=== PATIENT | male | born 1965 | race African-American/Black ===

== ENCOUNTER 2024-01-22 13:10 | Inpatient (IN) | payer OTHER, MEDICAID ==
[~2024-01-22] VITALS: Ht 170.2 cm; Wt 60.1 kg
--- NOTE | 2024-01-22 14:09 | ED.PDOC ---
HPI Comments 58 y.o male with PMH of ESRD, on dialysis Monday, Monday, Monday, CVA x2, and HTN, presents to the ED via EMS for an evaluation of high blood pressure associated with SOB, dizziness and a cough that started 1-2 days ago. Patient reports he had dialysis done today at 1130, completed the full session but symptoms did not relief. Patient denies any chest pain, nausea, vomiting, fever or chills. Upon ED arrival, patient's pressure read 240/120. Chief Complaint: High Blood Pressure Time Seen by MD: 13:58 Reviewed Notes: Nurses Notes, Sanding Machine Tender Automatic Notes, Medications, Allergies Allergies: Coded Allergies: Diphenhydramine (Verified Allergy, Unknown, 01/22/24) Information Source: Patient Mode of Arrival: EMS Severity: Moderate Timing: Days Duration: Since onset Onset: At Rest Cardiac Risk Factors: HTN History of: None Modifying Factors: Nothing Associated Signs and Symptoms: SOB Past Medical History PAST MEDICAL HISTORY: CVA (2), ESRD, HTN Surgical History (Other): left arm shunt Family History Family History: Reviewed,noncontributory to illness Social History Smoker: Non-Smoker Alcohol: Denies ETOH Use Drugs: Denies Drug Use Lives In: Home Constitutional: denies: chills, diaphoresis, fatigue, fever, malaise, sweats, weakness, others EENTM: denies: blurred vision, double vision, ear bleeding, ear discharge, ear drainage, ear pain, ear ringing, eye pain, eye redness, hearing loss, mouth pain, mouth swelling, nasal discharge, nose bleeding, nose congestion, nose pain, photophobia, tearing, throat pain, throat swelling, voice changes, others Respiratory: reports: cough, SOB at rest, shortness of breath; denies: hemoptysis, orthopnea, SOB with excertion, stridor, wheezing, others Cardiovascular: denies: chest pain, dizzy spells, diaphoresis, Dyspnea on exertion, edema, irregular heart beat, left arm pain, lightheadedness, palpitations, PND, syncope, others Gastrointestinal: denies: abdomen distended, abdominal pain, blood streaked bowels, constipated, diarrhea, dysphagia, difficulty swallowing, hematemesis, melena, nausea, poor appetite, poor fluid intake, rectal bleeding, rectal pain, vomiting, others Genitourinary: denies: burning, dysuria, flank pain, frequency, hematuria, incontinence, penile discharge, penile sore, pain, testicle pain, testicle swelling, urgency, others Neurological: reports: dizziness; denies: fainting, headache, left sided numbness, left sided weakness, numbness, paresthesia, pre-existing deficit, right sided numbness, right sided weakness, seizure, speech problems, tingling, tremors, weakness, others Musculoskeletal: denies: back pain, gout, joint pain, joint swelling, muscle pain, muscle stiffness, neck pain, others Integumetry: denies: bruises, change in color, change in hair/nails, dryness, laceration, lesions, lumps, rash, wounds, others Allergic/Immunocompromised: denies: Difficulty Healing, Frequent Infections, Hives, Itching, others Hematologic/Lymphatic: denies: anemia, blood clots, easy bleeding, easy bruising, swollen glands, others Endocrine: denies: excessive hunger, excessive sweating, excessive thirst, excessive urination, flushing, intolerance to cold, intolerance to heat, unexplained weight gain, unexplained weight loss, others Psychiatric: denies: anxiety, bipolar disorder, depression, hopeless, panic disorder, schizophrenia, sleepless, suicidal, others All Other Systems: Reviewed and Negative Physical Exam General Appearance: Moderate Distress HEENT: Normal ENT Inspection, Pharynx Normal, TMs Normal Neck: Full Range of Motion, Non-Tender, Normal, Normal Inspection Respiratory: Chest Non-Tender, No Accessory Muscle Use, Rales, Respiratory Distress Cardiovascular: No Edema, No JVD, No Murmur, No Gallop, Normal Peripheral Pulses, Regular Rate/Rhythm Breast Exam: Deferred Gastrointestinal: No Organomegaly, Non Tender, No Pulsatile Mass, Normal Bowel Sounds, Soft Genitalia: Deferred Pelvic: Deferred Rectal: Deferred Extremities: No calf tenderness, Normal capillary refill, No pedal edema, Other (Left arm fistula for dialysis) Musculoskeletal : Apperance: Normal Neurologic: Alert, mining speculator II-XII nml as Tested, Motor Weakness, Normal Affect, Normal Mood, No Sensory Deficits Cerebellar Function: Normal Reflexes: Normal Skin: Dry, Normal Color, Warm Lymphatic: No Adenopathy EKG EKG : Pulse Rate (adult): 62 [place]: Normal Cardiac Rhythm: NSR Block: None Hypertrophy: LVH Was a procedure done? Was a procedure done?: No CP Differential Dx Differential Diagnosis: N/A Differential Diagnosis: CHF, HTN Essential, HTN Accelerated, HTN Encephalopathy ( ) X-Ray, Labs, Meds, VS Vital Signs Date Time Temp Pulse Resp B/P (MAP) Pulse Ox O2 Delivery O2 Flow Rate FiO2 01/22/24 16:50 98.4 72 24 231/87 (135) 95 98.4 01/22/24 15:03 62 01/22/24 14:59 62 01/22/24 14:44 65 16 93 Room Air* 0 21 01/22/24 14:41 225/106 01/22/24 14:36 97.7 63 18 225/106 (145) 91 97.7 01/22/24 13:10 97.9 90 20 240/120 (160) 96 Lab Test 01/22/24 16:28 Range/Units White Blood Count 4.7 4.4-10.8 10^3/uL Red Blood Count 4.05 L 4.5-5.90 10^6/uL Hemoglobin 10.9 L 13.5-17.5 g/dL Hematocrit 33.3 L 41.0-53.0 % Mean Corpuscular Volume 82.3 80.0-100.0 fL Mean Corpuscular Hemoglobin 26.9 L 28.0-32.0 pg Mean Corpuscular Hemoglobin Concent 32.7 32.0-36.0 g/dL Red Cell Distribution Width 18.1 H 11.8-14.3 % Platelet Count 240 140-450 10^3/uL Mean Platelet Volume 7.1 6.9-10.8 fL Neutrophils (%) (Auto) 71.2 37.0-80.0 % Lymphocytes (%) (Auto) 15.4 10.0-50.0 % Monocytes (%) (Auto) 10.3 0.0-12.0 % Eosinophils (%) (Auto) 2.2 0.0-7.0 % Basophils (%) (Auto) 0.9 0.0-2.0 % Neutrophils # (Auto) 3.3 1.6-8.6 10 ^3/uL Lymphocytes # (Auto) 0.7 0.4-5.4 10 ^3/uL Monocytes # (Auto) 0.5 0-1.3 10 ^3/uL Eosinophils # (Auto) 0.1 0-0.8 10 ^3/uL Basophils # (Auto) 0 0-0.2 10 ^3/uL Nucleated Red Blood Cells 0.3 % Sodium Level 137 136-145 mmol/L Potassium Level 4.6 3.5-5.1 mmol/L Chloride Level 96 L 98-107 mmol/L Carbon Dioxide Level 30 20-31 mmol/L Anion Gap 11 5-15 Blood Urea Nitrogen 31 H 9-23 mg/dL Creatinine 7.20 H 0.700-1.30 mg/dL Glomerular Filtration Rate Calc 8 >90 mL/min BUN/Creatinine Ratio 4.3 L 10.0-20.0 Serum Glucose 93 74-106 mg/dL Calcium Level 10.6 H 8.7-10.4 mg/dL Troponin I High Sensitivity 70 *H </=54 ng/L B-Type Natriuretic Peptide 3385.64 0-100 pg/mL Current Medications Medications (Trade) Dose Ordered Sig/Karuna Route Start Time Stop Time Status Last Admin Hydralazine HCl (Apresoline Injection) 20 mg ONCE ONCE IV 01/22/24 14:15 01/22/24 14:16 DC 01/22/24 14:41 CHEST RADIOGRAPH IMPRESSION: 1. Cardiomegaly with probable pulmonary vascular congestion. Alternate considerations include atypical infection or pneumonitis. Time of 1ST Reevaluation: 14:05 Reevaluation 1ST: Unchanged Patient Education/Counseling: Diagnosis, Treatment, Prognosis Family Education/Counseling: Diagnosis, Treatment, Prognosis Departure 1 Departure Time of Disposition: 17:22 Impression: Primary Impression: Hypertensive crisis Additional Impressions: Acute on chronic diastolic heart failure ESRD on dialysis Disposition: ADMITTED INPATIENT Admit to: Tele Condition: Fair Critical Care Note Critical Care Time?: Yes (35 min-critical care time only) Stability Stability form required: Yes Unstable for transfer: Telemetry monitoring (Telemetry monitoring required), ED Physician Assesment (Clinical assesment) I personally scribed for NANCIE HOLDEN MD ([email or web address]) on 01/22/24 at 14:09. Electronically submitted by Kiana Price ([employer]). I personally scribed for NANCIE HOLDEN MD ([email or web address]) on 01/22/24 at 15:36. Electronically submitted by Kiana Price ([employer]). NANCIE HOLDEN MD Jan 22, 2024 14:09
--- NOTE | 2024-01-22 14:40 | DVH ---
CHEST RADIOGRAPH Indication: sob Technique: Single frontal view of the chest was obtained Comparison: None FINDINGS: Lines and Tubes: None Lungs: No focal consolidation. Diffuse bilateral interstitial opacities. Pleura: No effusion. No pneumothorax. Cardiomediastinal contours: Cardiomegaly Bones: No acute osseous abnormality. IMPRESSION: 1. Cardiomegaly with probable pulmonary vascular congestion. Alternate considerations include atypica l infection or pneumonitis. HS:Y
[2024-01-22] MEDS: hydrALAZINE HCL 20 MG/ML VL IV ONE (14:41)
[2024-01-22 14:44] VITALS: PULSE 65; RESP 16; O2SAT 93
--- NOTE | 2024-01-22 15:02 | ECG ---
[facility] Test Date: 2024-01-22 Test Time: 14:59:50 Pat Name: FREDI BHANDARI Department: ER Room: 0223T Gender: M Supervisory Aide: GIL : 1965 Requested By: NANCIE HOLDEN Order Number: [id number] Reading MD: Quentin Aadn Measurements Intervals [place] Rate: 62 P: 70 KS: 162 QRS: 83 QRSD: 117 T: -70 QT: 466 QTc: 474 Interpretive Statements Sinus rhythm Left ventricular hypertrophy Nonspecific T abnormalities, inferior leads ST elevation, consider anterior injury Electronically Signed On 01-26-2024 10:18:50 PST by Quentin Adan Please click the below link to view image of tracing.
[2024-01-22 16:47] LABS: Basophils # (auto) 0 10 ^3/uL (0-0.2); Basophils % (auto) 0.9 % (0.0-2.0); Eosinophils # (auto) 0.1 10 ^3/uL (0-0.8); Eosinophils % (auto) 2.2 % (0.0-7.0); Hematocrit 33.3 % (41.0-53.0); Hemoglobin 10.9 g/dL (13.5-17.5); Lymphocytes # (auto) 0.7 10 ^3/uL (0.4-5.4); Lymphocytes % (auto) 15.4 % (10.0-50.0); Mean Corpuscular Hemoglobin 26.9 pg (28.0-32.0); Mean Corpuscular Hgb Conc. 32.7 g/dL (32.0-36.0); Mean Corpuscular Volume 82.3 fL (80.0-100.0); Monocytes # (auto) 0.5 10 ^3/uL (0-1.3); Monocytes % (auto) 10.3 % (0.0-12.0); Neutrophils # (auto) 3.3 10 ^3/uL (1.6-8.6); Neutrophils % (auto) 71.2 % (37.0-80.0); Nucleated Red Blood Cells % 0.3 %; Platelet Count (auto) 240 10^3/uL (140-450); Red Blood Cells 4.05 10^6/uL (4.5-5.90); Red Cell Distribution Width 18.1 % (11.8-14.3); White Blood Cell 4.7 10^3/uL (4.4-10.8)
[2024-01-22 16:50] VITALS: PULSE 72; RESP 24; O2SAT 95
[2024-01-22 16:55] LABS: Potassium 4.6 mmol/L (3.5-5.1); Sodium 137 mmol/L (136-145)
[2024-01-22 16:56] LABS: Anion Gap 11 (5-15); Carbon Dioxide 30 mmol/L (20-31)
[2024-01-22 17:01] LABS: BUN/Creatinine Ratio 4.3 (10.0-20.0); Blood Urea Nitrogen 31 mg/dL (9-23); Calcium 10.6 mg/dL (8.7-10.4); Chloride 96 mmol/L (98-107); Glucose 93 mg/dL (74-106)
[2024-01-22] MEDS: cloNIDine HCL 0.1 MG TAB PO ONE (17:22)
[2024-01-22] MEDS ORDERED: ONDANSETRON HCL 4 MG/2 ML VIAL IV PRN (19:00)
[2024-01-22] MEDS ORDERED: NITROGLYCERIN 0.4 MG SL TAB SL PRN (19:00)
[2024-01-22] MEDS ORDERED: MORPHINE SULFATE INJ 2 MG/ml SYRG IV PRN (19:00)
[2024-01-22] MEDS ORDERED: ACETAMINOPHEN 325 MG TAB PO PRN (19:00)
[2024-01-22] MEDS ORDERED: ALBUTEROL SULF 2.5 MG/0.5ML(0.5%) NEB SOLN NEB PRN (19:00)
[2024-01-22] MEDS: FUROSEMIDE 100 MG/10ML VIAL IV ONE (19:08)
[2024-01-22 19:45] VITALS: PULSE 59; RESP 17; O2SAT 91
[2024-01-22] MEDS: ENALAPRILAT 1.25 MG/ML-1ML VIAL IV ONE (20:02)
--- NOTE | 2024-01-22 21:56 | DVHHP2 ---
History of Present Illness Reason for Visit: Shortness for breath History of Present Illness 58 year male presents for evaluation of shortness for breath. Patient endorses a two day history of worsening shortness for breath with associated elevated blood pressure despite being compliant with his antihypertensive medications. Denies chest pain, nausea or vomiting. Other acute complaints reported. Past Medical History Hypertension, end-stage renal disease, CVA, dyslipidemia. Past Surgical History Dialysis access Family History Noncontributory Smoke: No ALCOHOL: none Drugs: None Review of Systems Review of Systems Review of systems are currently negative otherwise addressed in HPI. Allergies: Coded Allergies: Diphenhydramine (Verified Allergy, Unknown, 01/22/24) Medications Current Medications Medications Dose Ordered Sig/Karuna Route Start Time Stop Time Status Last Admin Dose Admin Hydralazine HCl 10 mg Q6HP PRN IV 01/22/24 19:00 Clonidine HCl 0.2 mg BID PO 01/22/24 22:00 Hydralazine HCl 50 mg Q8HR PO 01/22/24 22:00 Nifedipine 60 mg BID PO 01/22/24 22:00 Future Hold Atorvastatin Calcium 20 mg HS PO 01/22/24 22:00 Sevelamer HCl 800 mg TIDWM PO 01/23/24 08:00 Metoprolol Tartrate 50 mg BID PO 01/22/24 22:00 Furosemide 40 mg DAILY PO 01/23/24 10:00 Albuterol 2.5 mg Q6HPRN PRN NEB 01/22/24 19:00 Aspirin 162 mg DAILY PO 01/23/24 10:00 Ondansetron HCl 4 mg Q4HP PRN IV 01/22/24 19:00 Acetaminophen 650 mg Q6HP PRN PO 01/22/24 19:00 Nitroglycerin 0.4 mg Q5MINP PRN SL 01/22/24 19:00 Morphine Sulfate 2 mg Q30M PRN IV 01/22/24 19:00 Nicardipine HCl 250 ml @ 50 mls/hr Q5H IV 01/22/24 21:15 01/22/24 21:25 50 MLS/HR Exam Vital Signs Vital Signs Date Time Temp Pulse Resp B/P (MAP) Pulse Ox O2 Delivery O2 Flow Rate FiO2 01/22/24 21:25 61 235/118 01/22/24 18:58 20 92 01/22/24 16:50 98.4 98.4 12/16/24 16:50 Room Air* 0 21 Exam Gen: 58-year-old male in mild distress. Skin: Warm, dry, normal color and texture, no rash. HEENT: Normocephalic atraumatic, mucous membranes moist and pink. Neck: Cervical and supraclavicular nodes normal without enlargement, trachea is midline, thyroid gland is normal without masses. Pulmonary: Clear to auscultation and percussion bilaterally. Cardiac: Regular rate and rhythm. No murmur Abdomen: Soft, nontender, nondistended, bowel sounds present all 4 quadrants, no guarding, no rigidity, no organomegaly. Extremities: No cyanosis, clubbing, no edema Neuro: Cranial nerves II through XII grossly intact, normal affect and speech, no focal motor deficits. Labs/Xrays ORDERING PHYSICIAN: NANCIE HOLDEN MD PROCEDURE(s): CXRP - CHEST PORTABLE REASON: sob ORDER NUMBER(s): [id number], ACCESSION NUMBER(s): [id number] CHEST RADIOGRAPH Indication: sob Technique: Single frontal view of the chest was obtained Comparison: None FINDINGS: Lines and Tubes: None Lungs: No focal consolidation. Diffuse bilateral interstitial opacities. Pleura: No effusion. No pneumothorax. Cardiomediastinal contours: Cardiomegaly Bones: No acute osseous abnormality. IMPRESSION: 1. Cardiomegaly with probable pulmonary vascular congestion. Alternate considerations include atypical infection or pneumonitis. HS:Y Labs Test 01/22/24 18:20 01/22/24 16:28 Range/Units Troponin I High Sensitivity 78 *H </=54 ng/L White Blood Count 4.7 4.4-10.8 10^3/uL Red Blood Count 4.05 L 4.5-5.90 10^6/uL Hemoglobin 10.9 L 13.5-17.5 g/dL Hematocrit 33.3 L 41.0-53.0 % Mean Corpuscular Volume 82.3 80.0-100.0 fL Mean Corpuscular Hemoglobin 26.9 L 28.0-32.0 pg Mean Corpuscular Hemoglobin Concent 32.7 32.0-36.0 g/dL Red Cell Distribution Width 18.1 H 11.8-14.3 % Platelet Count 240 140-450 10^3/uL Mean Platelet Volume 7.1 6.9-10.8 fL Neutrophils (%) (Auto) 71.2 37.0-80.0 % Lymphocytes (%) (Auto) 15.4 10.0-50.0 % Monocytes (%) (Auto) 10.3 0.0-12.0 % Eosinophils (%) (Auto) 2.2 0.0-7.0 % Basophils (%) (Auto) 0.9 0.0-2.0 % Neutrophils # (Auto) 3.3 1.6-8.6 10 ^3/uL Lymphocytes # (Auto) 0.7 0.4-5.4 10 ^3/uL Monocytes # (Auto) 0.5 0-1.3 10 ^3/uL Eosinophils # (Auto) 0.1 0-0.8 10 ^3/uL Basophils # (Auto) 0 0-0.2 10 ^3/uL Nucleated Red Blood Cells 0.3 % Sodium Level 137 136-145 mmol/L Potassium Level 4.6 3.5-5.1 mmol/L Chloride Level 96 L 98-107 mmol/L Carbon Dioxide Level 30 20-31 mmol/L Anion Gap 11 5-15 Blood Urea Nitrogen 31 H 9-23 mg/dL Creatinine 7.20 H 0.700-1.30 mg/dL Glomerular Filtration Rate Calc 8 >90 mL/min BUN/Creatinine Ratio 4.3 L 10.0-20.0 Serum Glucose 93 74-106 mg/dL Calcium Level 10.6 H 8.7-10.4 mg/dL B-Type Natriuretic Peptide 3385.64 0-100 pg/mL Assessment/Plan Assessment/Plan Assessment Hypertensive emergency Volume overload End-stage renal disease, dialysis dependent Elevated troponin, demand ischemia Chronic anemia Plan Admit the patient to ICU to the hospitalist Césarardinanette palacios Nephrology consultation Resume home medications Continue treatment per orders. Plan discussed with: Patient My Orders Orders - DALE LANZA Procedure Category Date Status Time Hydralazine Injection PHA 01/22/24 In Process (Apresoline Inject 19:00 Clonidine Hcl Tablet PHA 01/22/24 In Process (Catapres Tablet) 22:00 Hydralazine Hcl PHA 12/16/24 In Process Tablet (Apresoline 22:00 Nifedipine Er PHA 01/22/24 In Process (Procardia Xl 22:00 Atorvastatin (Lipitor) PHA 01/22/24 In Process 22:00 Sevelamer (Renagel) PHA 01/23/24 In Process 08:00 Metoprolol Tartrate PHA 01/22/24 In Process Tablet (Lopressor Ta 22:00 Furosemide Tablet PHA 01/23/24 In Process (Lasix Tablet) 10:00 Albuterol Medneb PHA 01/22/24 In Process (Ventolin Medneb) 19:00 *[facility] CONS 01/22/24 Transmitted -[place] 18:51 Aspirin Tablet PHA 01/23/24 In Process 10:00 Basic Metabolic Panel LAB 01/23/24 Verified 04:00 Admit ADMIT 01/22/24 Transmitted 18:51 Renal DIET 01/23/24 Transmitted Standard(2gna,3gk,Lopho) Breakfast Ondansetron Hcl PHA 01/22/24 In Process (Zofran) 19:00 Echo 2d Mode Cardiac US 01/22/24 Logged DOP 18:51 Condition: Fair MICK 01/22/24 In Process 18:51 Acetaminophen Tablet PHA 01/22/24 In Process (Tylenol Tablet) 19:00 Bedrest With Bathroom MICK 01/22/24 In Process Privileg 18:51 Nitroglycerin PHA 01/22/24 In Process Sublingual (Ntrostat 19:00 Morphine Sulfate PHA 01/22/24 In Process Injection 19:00 Stat Ekg For Chest MICK 01/22/24 In Process Pain 18:51 Notify Md Of Changes MICK 01/22/24 In Process From Base 18:51 Architectural Wood Model Maker For MICK 01/22/24 In Process 24 Hours 18:51 Emergency Dysrhythmia [facility] 01/22/24 In Process Protocol 18:51 Rhythm Strips Once [facility] 01/22/24 In Process Every Shift 18:51 Oxygen By Nasal RT 01/22/24 Transmitted Cannula 18:51 Nicardipine PHA 01/22/24 In Process 25mg/250ml Bag Kit 21:15 Date of Service: Jan 22, 2024 Billing Provider: DALE LANZA Common Visit Codes: 52699-PILGVDSI CARE 30-74 MIN DALE LANZA Jan 22, 2024 21:56
[2024-01-22] MEDS ORDERED: NIFEdipine ER 30 MG TAB PO SCH (22:00)
[2024-01-22] MEDS: METOPROLOL TARTRATE 50 MG TAB PO SCH (22:16)
[2024-01-22] MEDS: ATORVASTATIN 20 MG TAB PO SCH (22:17)
[2024-01-22] MEDS: hydrALAZINE HCL 25 MG TAB PO SCH (22:18)
[2024-01-22] MEDS: cloNIDine HCL 0.1 MG TAB PO SCH (22:18)
[2024-01-22 23:00] VITALS: BP 147/68; PULSE 60; RESP 16; O2SAT 98
[2024-01-22] MEDS: guaiFENesin-DM 100/10mg/5ml SYR PO PRN (23:16)
[2024-01-22 23:27] VITALS: PULSE 60; RESP 21; O2SAT 93
[2024-01-23] VITALS (7 sets, daily range): BP systolic 142–189; BP diastolic 78–87; PULSE 60–68; RESP 18; TEMP 96.7–97.6; O2SAT 92–99
[2024-01-23 07:52] LABS: Potassium 4.4 mmol/L (3.5-5.1)
[2024-01-23 07:53] LABS: Anion Gap 10 (5-15); Calcium 9.6 mg/dL (8.7-10.4); Carbon Dioxide 29 mmol/L (20-31)
[2024-01-23 07:56] LABS: Chloride 94 mmol/L (98-107); Sodium 133 mmol/L (136-145)
[2024-01-23] MEDS: SEVELAMER 800 MG TAB PO SCH (07:56)
[2024-01-23 07:58] LABS: BUN/Creatinine Ratio 4.1 (10.0-20.0); Glucose 100 mg/dL (74-106)
[2024-01-23 08:04] LABS: Blood Urea Nitrogen 36 mg/dL (9-23)
[2024-01-23] MEDS: FUROSEMIDE 40 MG TAB PO SCH (08:43)
[2024-01-23] MEDS: ASPirin 81 mg TAB PO SCH (08:45)
[2024-01-23] MEDS: hydrALAZINE HCL 20 MG/ML VL IV PRN (12:28)
--- NOTE | 2024-01-23 13:03 | DVHSR ---
APPROVED REPORT EXAM: Two-dimensional and M-mode echocardiogram with Doppler and color Doppler. Blood Pressure: 151/69 mmHg INDICATION EF RISK FACTORS Height: 5'7", Weight: 132 DIMENSIONS LVDd5.4 (3.8-5.7cm)LA (2D)5.7 (1.9-4.0cm)Aortic Root3.0 (2.0-3.7cm) LVDs3.3 (2.5-4.0cm)LA (MM) (1.9-4.0cm)Aortic Cusp Exc0.8 (1.5-2.0cm) EF (%) 67.0 (55-70%)Rt. Atrium4.5 (1.9-4.0cm)Asc. Aorta3.0 cm IVSd1.2 (0.7-1.1cm)RV (D)4.6 (1.8-2.4cm) PWd1.5 (0.7-1.1cm) Mitral Valve MitralMitral Stenosis E wave1.22m/sMV Mean GR.mmHg A wave0.77m/sMV Peak GR.mmHg E/A ratio1.62D MVAcm2 DECEL [id number] 1/2 Timems Aortic Valve Aortic ValveAortic Stenosis V11.51m/Melissa Mean GR.14mmHg V22.64m/Melissa Peak GR.28mmHg LVOT Diameter2.0 (1.8-2.4cm)Doppler AVA1.80cm2 2D AVA2.58cm2 AI P 1/2 Uanj922.03ms Pulmonic Valve V21.29m/s Tricuspid Valve TR Velocity4.15m/s [id number] Conclusion There is moderate concentric left ventricular hypertrophy. Well-preserved left ventricular systolic function estimated ejection fraction of 55%. There is a grade 1diastolic dysfunction. Normal right ventricular size and dimension. Normal right ventricular systolic function. Severely e levated right ventricular systolic [id number] mm of mercury. Moderately dilated right and left atria. Aortic valve is mildly thickened there is mild aortic valve regurgitation. There is a significant posterior mitral annular calcification without significant regurgitation or st enosis. There is mild thickening of the tricuspid valve. The pulmonary valve is grossly normal. No pericardial effusion.
[2024-01-23] MEDS ORDERED: HYDR100T10 PO (13:26)
[2024-01-23] MEDS ORDERED: CLON0.1T PO (13:26)
[2024-01-23] MEDS ORDERED: MET50T PO (13:26)
[2024-01-23] MEDS ORDERED: NIFE90TA75 PO (13:26)
[2024-01-23] MEDS ORDERED: LOSA-534 PO (13:28)
--- NOTE | 2024-01-23 13:28 | DVHINCON2 ---
Date of service: Jan 23, 2024 Referring Physician Tez GARVIN Reason for Consultation End-stage renal disease management. History of Present Illness 58-year-old patient with significant history of end-stage renal disease on hemodialysis on Monday with last dialysis yesterday, hypertension, anemia who presents to the hospital also with history of CVA who presents to the hospital with complains of shortness of breath for the last couple of days worsening associated with hypertension in the dialysis unit yesterday more than 200 systolic persistently despite appropriate UF of at least 3 L. patient denies ingestion of excessive amounts of fluid or salt over the weekend and he has been compliant with his medications. Patient felt better after dialysis in regards to the dyspnea but not in regards to their blood pressure readings post dialysis. He denies chest pain. The dialysis unit of blood pressure was 220. His target weight is at 56 kilos. Past Medical History End-stage renal disease, hypertension. Past Surgical History Left upper arm AV fistula and AV graft creation. Allergies: Coded Allergies: Diphenhydramine (Verified Allergy, Unknown, 01/22/24) Home Meds Nifedipine 90 mg daily, metoprolol 50 mg twice a day, hydralazine 100 mg twice a day 3 times a day, clonidine twice a day. Current Medications Current Medications Medications (Trade) Dose Ordered Sig/Karuna Route PRN Reason Start Time Stop Time Status Last Admin Hydralazine HCl (Apresoline Injection) 10 mg Q6HP PRN IV SBP>150 01/22/24 19:00 01/23/24 12:28 Clonidine HCl (Catapres Tablet) 0.2 mg BID PO 01/22/24 22:00 01/23/24 08:43 Hydralazine HCl (Apresoline Tablet) 50 mg Q8HR PO 01/22/24 22:00 01/23/24 06:22 Nifedipine (Procardia Xl (Time-Release)) 60 mg BID PO 01/22/24 22:00 Hold Atorvastatin Calcium (Lipitor) 20 mg HS PO 01/22/24 22:00 01/22/24 22:17 Sevelamer HCl (Renagel) 800 mg TIDWM PO 01/23/24 08:00 01/23/24 07:56 Metoprolol Tartrate (Lopressor Tablet) 50 mg BID PO 01/22/24 22:00 01/23/24 08:42 Furosemide (Lasix Tablet) 40 mg DAILY PO 01/23/24 10:00 01/23/24 08:43 Albuterol (Ventolin Medneb) 2.5 mg Q6HPRN PRN NEB SHORTNESS OF BREATH 01/22/24 19:00 Aspirin 162 mg DAILY PO 01/23/24 10:00 01/23/24 08:45 Ondansetron HCl (Zofran) 4 mg Q4HP PRN IV NAUSEA / VOMITING 01/22/24 19:00 Acetaminophen (Tylenol Tablet) 650 mg Q6HP PRN PO PAIN SCALE 1-3 OR TEMP>100.4 01/22/24 19:00 Nitroglycerin (Ntrostat Sublingual) 0.4 mg Q5MINP PRN SL FOR CHEST PAIN 01/22/24 19:00 Morphine Sulfate 2 mg Q30M PRN IV FOR CHEST PAIN 01/22/24 19:00 Nicardipine HCl 250 ml @ 50 mls/hr Q5H IV 01/22/24 21:15 01/23/24 09:38 Guaifenesin/ Dextromethorphan (Robitussin-Dm Liquid) 10 ml Q6HP PRN PO FOR COUGH 01/22/24 23:15 01/22/24 23:16 Family History Patient the start remember family history. Review of Systems HEENT: Oral mucosa dry Neck no JVD Cardiovascular: Denies for chest pain denies orthopnea or PND Respiratory: Positive for shortness of breath Gastrointestinal: Denies for nausea vomiting Musculoskeletal: Denies myalgias Neurological: Denies focal weakness Dermatological: Denies any rash The rest of the review of systems were reviewed pertinent positives and pertinent negatives are as per HPI up to 12 points review of systems H&P Exam Vital Signs/I&O Vital Sign Date Time Temp Pulse Resp B/P (MAP) Pulse Ox O2 Delivery O2 Flow Rate FiO2 01/23/24 12:28 180/81 01/23/24 10:16 53 13 93 01/23/24 08:00 Room Air* 0 21 01/23/24 08:00 98.3 98.3 Intake and Output 01/22/24 01/23/24 19:00 07:00 Intake Total 575.00 ml Balance 575.00 ml Intake IV Total 575.00 ml Physical Exam HEENT: No evidence of JVD, no oral ulcers. Pulmonary: Crackles on auscultation bilaterally Cardiovascular S1-S2, no S3 or S4 Abdomen: Bowel sounds positive, soft no rebound tenderness Skin: No rash Neurological: Alert, oriented, no focal weakness Labs/Diagnostic Data Labs/Diagnostic Data Laboratory Tests Test 01/23/24 07:35 01/22/24 18:20 01/22/24 16:28 Range/Units Sodium Level 133 L 137 136-145 mmol/L Potassium Level 4.4 4.6 3.5-5.1 mmol/L Chloride Level 94 L 96 L 98-107 mmol/L Carbon Dioxide Level 29 30 20-31 mmol/L Anion Gap 10 11 5-15 Blood Urea Nitrogen 36 H 31 H 9-23 mg/dL Creatinine 8.73 H 7.20 H 0.700-1.30 mg/dL Glomerular Filtration Rate Calc 6 8 >90 mL/min BUN/Creatinine Ratio 4.1 L 4.3 L 10.0-20.0 Serum Glucose 100 93 74-106 mg/dL Calcium Level 9.6 10.6 H 8.7-10.4 mg/dL Troponin I High Sensitivity 78 *H 70 *H </=54 ng/L White Blood Count 4.7 4.4-10.8 10^3/uL Red Blood Count 4.05 L 4.5-5.90 10^6/uL Hemoglobin 10.9 L 13.5-17.5 g/dL Hematocrit 33.3 L 41.0-53.0 % Mean Corpuscular Volume 82.3 80.0-100.0 fL Mean Corpuscular Hemoglobin 26.9 L 28.0-32.0 pg Mean Corpuscular Hemoglobin Concent 32.7 32.0-36.0 g/dL Red Cell Distribution Width 18.1 H 11.8-14.3 % Platelet Count 240 140-450 10^3/uL Mean Platelet Volume 7.1 6.9-10.8 fL Neutrophils (%) (Auto) 71.2 37.0-80.0 % Lymphocytes (%) (Auto) 15.4 10.0-50.0 % Monocytes (%) (Auto) 10.3 0.0-12.0 % Eosinophils (%) (Auto) 2.2 0.0-7.0 % Basophils (%) (Auto) 0.9 0.0-2.0 % Neutrophils # (Auto) 3.3 1.6-8.6 10 ^3/uL Lymphocytes # (Auto) 0.7 0.4-5.4 10 ^3/uL Monocytes # (Auto) 0.5 0-1.3 10 ^3/uL Eosinophils # (Auto) 0.1 0-0.8 10 ^3/uL Basophils # (Auto) 0 0-0.2 10 ^3/uL Nucleated Red Blood Cells 0.3 % B-Type Natriuretic Peptide 3385.64 0-100 pg/mL Chest x-ray with pulmonary vascular congestion Assessment Assessment: 1. End-stage renal disease on hemodialysis Monday 2. Hypertensive emergency 3. Fluid overload. 4. Anemia of end-stage renal disease 5. Troponin elevation. 6. Secondary hyperparathyroidism. Plan: We will attempt to do extra session today for extra ultrafiltration. At the moment no nursing staff available to perform his dialysis. Continue dialysis on Monday schedule. Continue nicardipine drip. Resume antihypertensive meds orally Fluid restriction less than 1 L per day discussed with the patient Derek for goal hemoglobin 10 to 11 grams/deciliter. Post dialysis of the patient more stable and blood pressure improved reasonable to discharge home to continue his dialysis on Monday as an outpatient. Thank you very much for allowing us to participate in the care of this patient Plan discussed with: Patient DAMARIS RODRIGUEZ MD Jan 23, 2024 13:28
[2024-01-23] MEDS ORDERED: LIDOCAINE 2% TOPICAL JELLY 5 ML URJT TOP PRN (13:30)
[2024-01-23] MEDS ORDERED: SODIUM CHL 0.9% 1000 ML BAG XX ONE (13:30)
[2024-01-23] MEDS: LOSARTAN POTASSIUM 50 MG TAB PO ONE (14:17)
[2024-01-23] MEDS: NIFEdipine ER 30 MG TAB PO ONE (14:17)
--- NOTE | 2024-01-23 14:34 | DVHPN2 ---
Subjective 58-year-old male with end-stage kidney disease came with elevated blood pressure from dialysis He was on nicardipine drip overnight His blood pressure is better now He goes to dialysis Monday was in Monday Last dialysis yesterday when he came Changes from previous H/P or p: Changes Objective Vitals Vital Signs Date Time Temp Pulse Resp B/P (MAP) Pulse Ox O2 Delivery O2 Flow Rate FiO2 01/23/24 14:17 197/83 01/23/24 12:00 58 01/23/24 10:16 13 93 01/23/24 08:00 Room Air* 0 21 01/23/24 08:00 98.3 98.3 Intake/Output Intake and Output 01/23/24 07:00 Intake Total 575.00 ml Balance 575.00 ml Intake IV Total 575.00 ml General Appearance: Alert, Oriented X3, Cooperative, No acute distress Lungs: Clear to auscultation, Normal air movement Cardiovascular: Regular rate, Normal S1, Normal S2 Extremities: No edema Medications Current Medications Medications Dose Ordered Sig/Karuna Route Start Time Stop Time Status Last Admin Dose Admin Hydralazine HCl 10 mg Q6HP PRN IV 01/22/24 19:00 01/23/24 12:28 10 MG Clonidine HCl 0.2 mg BID PO 01/22/24 22:00 01/23/24 08:43 0.2 MG Atorvastatin Calcium 20 mg HS PO 01/22/24 22:00 01/22/24 22:17 20 MG Sevelamer HCl 800 mg TIDWM PO 01/23/24 08:00 01/23/24 14:16 800 MG Metoprolol Tartrate 50 mg BID PO 01/22/24 22:00 01/23/24 08:42 50 MG Furosemide 40 mg DAILY PO 01/23/24 10:00 01/23/24 08:43 40 MG Albuterol 2.5 mg Q6HPRN PRN NEB 01/22/24 19:00 Aspirin 162 mg DAILY PO 01/23/24 10:00 01/23/24 08:45 162 MG Ondansetron HCl 4 mg Q4HP PRN IV 01/22/24 19:00 Acetaminophen 650 mg Q6HP PRN PO 01/22/24 19:00 Nitroglycerin 0.4 mg Q5MINP PRN SL 01/22/24 19:00 Morphine Sulfate 2 mg Q30M PRN IV 01/22/24 19:00 Guaifenesin/ Dextromethorphan 10 ml Q6HP PRN PO 01/22/24 23:15 01/22/24 23:16 10 ML Lidocaine HCl 5 ml DAILYPRN PRN TOP 01/23/24 13:30 Hydralazine HCl 100 mg Q8HR PO 01/23/24 14:00 Nifedipine 90 mg DAILY PO 01/24/24 10:00 Losartan Potassium 50 mg DAILY PO 01/24/24 10:00 Laboratory Results Laboratory Tests 01/22/24 16:28 01/23/24 07:35 Chemistry Test 01/22/24 16:28 01/23/24 07:35 Calcium Level 10.6 mg/dL (8.7-10.4) H 9.6 mg/dL (8.7-10.4) Cardiac Markers Test 01/22/24 16:28 B-Type Natriuretic Peptide 3385.64 pg/mL (0-100) Assessment/Plan Assessment/Plan Hypertensive emergency End-stage renal disease on hemodialysis Chronic anemia of chronic kidney disease Fluid overload Troponin elevation, due to NSTEMI type 2 Secondary hyperparathyroidism Hyponatremia Old CVA Pulmonary edema Plan Resume the home medications Discontinue nicardipine drip Downgrade to record tester closely overnight Hemodialysis per nephrology Monitor the electrolytes closely Plan discussed with: Patient My Orders Orders - KOFI DOYLE MD Procedure Category Date Status Time Communication Order ORDERS 01/23/24 Transmitted 08:36 Hydralazine Hcl PHA 01/23/24 In Process Tablet (Apresoline 14:00 Nifedipine Er PHA 01/24/24 In Process (Procardia Xl 10:00 Losartan Tablet PHA 01/24/24 In Process (Cozaar Tablet) 10:00 Date of Service: Jan 23, 2024 Billing Provider: KOFI DOYLE MD Common Visit Codes: NOT BILLABLE KOFI DOYLE MD Jan 23, 2024 14:34
[2024-01-23] MEDS: hydrALAZINE HCL 25 MG TAB PO SCH (15:29)
[2024-01-23] MEDS: cloNIDine HCL 0.1 MG TAB PO SCH (17:59)
[2024-01-24] VITALS (10 sets, daily range): BP systolic 151–206; BP diastolic 75–93; PULSE 62–68; RESP 17–20; TEMP 97.1–97.6; O2SAT 97–99
[2024-01-24] MEDS ORDERED: SODIUM CHL 0.9% 1000 ML BAG XX ONE (07:00)
[2024-01-24 07:32] LABS: Alanine Aminotransferase 11 U/L (7-40); Albumin 3.8 g/dL (3.2-4.8); Alkaline Phosphatase 89 U/L (46-116); Anion Gap 11 (5-15); BUN/Creatinine Ratio 4.8 (10.0-20.0); Calcium 10.2 mg/dL (8.7-10.4); Carbon Dioxide 28 mmol/L (20-31); Glucose 89 mg/dL (74-106); Magnesium 2.3 mg/dL (1.6-2.6)
[2024-01-24 07:33] LABS: Total Protein 6.1 g/dL (5.7-8.2)
[2024-01-24 07:48] LABS: Aspartate Aminotransferase 12 U/L (13-40); Blood Urea Nitrogen 52 mg/dL (9-23); Chloride 92 mmol/L (98-107); Sodium 131 mmol/L (136-145)
[2024-01-24 07:49] LABS: Bilirubin, Total < 0.2 mg/dL (0.2-1.0)
[2024-01-24] MEDS: NIFEdipine ER 30 MG TAB PO SCH (08:47)
[2024-01-24] MEDS: LOSARTAN POTASSIUM 50 MG TAB PO SCH (08:54)
[2024-01-24] MEDS ORDERED: LOSA-535 PO (11:24)
[2024-01-24] MEDS ORDERED: NIFE90TA75 PO (11:24)
--- NOTE | 2024-01-24 11:28 | DVHDS2 ---
Discharge Summary Date of Admission Jan 22, 2024 at 18:51 Date of Discharge: Jan 24, 2024 Labs/Diagnostic Data: Laboratory Results Test 01/24/24 06:55 01/22/24 18:20 01/22/24 16:28 Sodium Level 131 mmol/L (136-145) Potassium Level 5.0 mmol/L (3.5-5.1) Chloride Level 92 mmol/L (98-107) Carbon Dioxide Level 28 mmol/L (20-31) Anion Gap 11 (5-15) Blood Urea Nitrogen 52 mg/dL (9-23) Creatinine 10.80 mg/dL (0.700-1.30) Glomerular Filtration Rate Calc 5 mL/min (>90) BUN/Creatinine Ratio 4.8 (10.0-20.0) Serum Glucose 89 mg/dL (74-106) Calcium Level 10.2 mg/dL (8.7-10.4) Magnesium Level 2.3 mg/dL (1.6-2.6) Total Bilirubin < 0.2 mg/dL (0.2-1.0) Aspartate Amino Transferase (AST) 12 U/L (13-40) Alanine Aminotransferase (ALT) 11 U/L (7-40) Alkaline Phosphatase 89 U/L (46-116) Total Protein 6.1 g/dL (5.7-8.2) Albumin 3.8 g/dL (3.2-4.8) Troponin I High Sensitivity 78 ng/L (</=54) White Blood Count 4.7 10^3/uL (4.4-10.8) Red Blood Count 4.05 10^6/uL (4.5-5.90) Hemoglobin 10.9 g/dL (13.5-17.5) Hematocrit 33.3 % (41.0-53.0) Mean Corpuscular Volume 82.3 fL (80.0-100.0) Mean Corpuscular Hemoglobin 26.9 pg (28.0-32.0) Mean Corpuscular Hemoglobin Concent 32.7 g/dL (32.0-36.0) Red Cell Distribution Width 18.1 % (11.8-14.3) Platelet Count 240 10^3/uL (140-450) Mean Platelet Volume 7.1 fL (6.9-10.8) Neutrophils (%) (Auto) 71.2 % (37.0-80.0) Lymphocytes (%) (Auto) 15.4 % (10.0-50.0) Monocytes (%) (Auto) 10.3 % (0.0-12.0) Eosinophils (%) (Auto) 2.2 % (0.0-7.0) Basophils (%) (Auto) 0.9 % (0.0-2.0) Neutrophils # (Auto) 3.3 10 ^3/uL (1.6-8.6) Lymphocytes # (Auto) 0.7 10 ^3/uL (0.4-5.4) Monocytes # (Auto) 0.5 10 ^3/uL (0-1.3) Eosinophils # (Auto) 0.1 10 ^3/uL (0-0.8) Basophils # (Auto) 0 10 ^3/uL (0-0.2) Nucleated Red Blood Cells 0.3 % B-Type Natriuretic Peptide 3385.64 pg/mL (0-100) Other Laboratory Tests 01/24/24 06:55 01/22/24 16:28 Brief Hx & Hospital Course: Final diagnoses: Hypertensive emergency End-stage renal disease on hemodialysis Chronic anemia of chronic kidney disease Fluid overload Troponin elevation, due to NSTEMI type 2 Secondary hyperparathyroidism Hyponatremia Old CVA Pulmonary edema 58-year-old male with a history of end-stage renal disease on hemodialysis who was admitted for uncontrolled hypertension He has some fluid overload also, he was started on Lasix For his hypertension he was started on nicardipine drip and then his home medications were restarted and maximized and then the drip was discontinued Latest blood pressure this morning was 189/94 Increase losartan to 100 mg daily Metoprolol 50 mg twice a day Nifedipine ER 90 mg daily Hydralazine 100 mg 3 times a day Clonidine 0.1 mg t.i.d. Discharged home after dialysis for outpatient follow up Condition at Discharge: Stable Final Diagnosis/Problems List Hypertensive emergency End-stage renal disease on hemodialysis Chronic anemia of chronic kidney disease Fluid overload Troponin elevation, due to NSTEMI type 2 Secondary hyperparathyroidism Hyponatremia Old CVA Pulmonary edema Discharge Disposition: Home SNF Discharge Will this Physician continue t: No Discharge Instruct/Medications Diet: Consistent carbohydrate, Cardiac 2g Na,low cholest, Renal Activity: No Restrictions, As Tolerated Follow Up/Referral: Hemodialysis as scheduled Medications: Nifedipine ER 90 mg daily Hydralazine 100 mg t.i.d. Metoprolol 50 mg twice daily Losartan 100 mg daily Clonidine 0.1 mg t.i.d. Discharge Statement: "Patient was advised to return to the ER or call 911 if any headaches, dizziness, shortness of breath, chest pain, abdominal pain, bleeding, fevers, or worsening of medical condition. Patient was counseled about treatment plan, medications, possible side effects, patientverbalized understanding. All questions were answered to the best of my ability. This discharge took greater then 30 minutes in planning, reviewing documentation, counseling the patient, and discussing with other team members." ASSESSMENT ASSESSMENT Assessment Hypertensive emergency End-stage renal disease on hemodialysis Chronic anemia of chronic kidney disease Fluid overload Troponin elevation, due to NSTEMI type 2 Secondary hyperparathyroidism Hyponatremia Old CVA Pulmonary edema Date of Service: Jan 24, 2024 Billing Provider: KOFI DOYLE MD Common Visit Codes: NOT BILLABLE KOFI DOYLE MD Jan 24, 2024 11:28
--- NOTE | 2024-01-24 12:10 | DVHPN2 ---
Progress Note - Dictate Date Seen: Jan 24, 2024 Medical Necessity Reason Pt with a Central, PICC or Fol: No Subjective Patient's breathing is improved. He denies any acute issues he wants to go home if possible. vital signs Vital Sign Date Time Temp Pulse Resp B/P (MAP) Pulse Ox O2 Delivery O2 Flow Rate FiO2 01/24/24 11:27 189/88 01/24/24 09:46 66 01/24/24 09:00 97.3 17 98 97.3 01/24/24 08:00 Room Air* 0 21 Total Intake and Output 01/23/24 01/23/24 01/24/24 15:00 23:00 07:00 Intake Total 800 ml Balance 800 ml medications Current Medications Medications Dose Ordered Sig/Karuna Route Start Time Stop Time Status Last Admin Dose Admin Hydralazine HCl 10 mg Q6HP PRN IV 01/22/24 19:00 01/24/24 11:27 10 MG Atorvastatin Calcium 20 mg HS PO 01/22/24 22:00 01/23/24 21:26 20 MG Sevelamer HCl 800 mg TIDWM PO 01/23/24 08:00 01/24/24 08:41 800 MG Metoprolol Tartrate 50 mg BID PO 01/22/24 22:00 01/24/24 08:46 50 MG Furosemide 40 mg DAILY PO 01/23/24 10:00 01/24/24 08:45 40 MG Albuterol 2.5 mg Q6HPRN PRN NEB 01/22/24 19:00 Aspirin 162 mg DAILY PO 01/23/24 10:00 01/24/24 08:41 162 MG Ondansetron HCl 4 mg Q4HP PRN IV 01/22/24 19:00 Acetaminophen 650 mg Q6HP PRN PO 01/22/24 19:00 Nitroglycerin 0.4 mg Q5MINP PRN SL 01/22/24 19:00 Morphine Sulfate 2 mg Q30M PRN IV 01/22/24 19:00 Guaifenesin/ Dextromethorphan 10 ml Q6HP PRN PO 01/22/24 23:15 01/22/24 23:16 10 ML Lidocaine HCl 5 ml DAILYPRN PRN TOP 01/23/24 13:30 Hydralazine HCl 100 mg Q8HR PO 01/23/24 14:00 01/24/24 06:22 100 MG Nifedipine 90 mg DAILY PO 01/24/24 10:00 01/24/24 08:47 90 MG Clonidine HCl 0.2 mg Q8HR PO 01/23/24 17:50 01/24/24 06:22 0.2 MG Losartan Potassium 100 mg DAILY PO 01/25/24 10:00 objective HEENT: No evidence of JVD, no oral ulcers. Pulmonary: Lungs are clear on auscultation bilaterally Cardiovascular S1-S2, no S3 or S4 Abdomen: Bowel sounds positive, soft no rebound tenderness Skin: No rash Neurological: Alert, oriented, no focal weakness laboratory and microbiology Laboratory Tests 01/24/24 06:55 01/22/24 16:28 Test 01/24/24 06:55 Range/Units Serum Glucose 89 74-106 mg/dL Assessment/Plan Assessment: 1. End-stage renal disease on hemodialysis Monday 2. Hypertensive emergency, improving 3. Fluid overload. 4. Anemia of end-stage renal disease 5. Troponin elevation. 6. Secondary hyperparathyroidism. Plan: Hemodialysis today Continue current antihypertensive meds Fluid restriction less than 1 L per day discussed with the patient Derek for goal hemoglobin 10 to 11 grams/deciliter. The patient is stable okay to discharge home Thank you very much for allowing us to participate in the care of this patient Plan discussed with: Patient DAMARIS RODRIGUEZ MD Jan 24, 2024 12:10
[2024-01-24] MEDS: LOSARTAN POTASSIUM 50 MG TAB PO ONE (14:50)
[2024-01-24] MEDS ORDERED: EPOETIN ALFA-EPBX 4,000 UNIT/ML VIAL SC ONE (21:00)
[2024-01-24 21:39] LABS: Potassium 3.9 mmol/L (3.5-5.1)
[2024-01-24 21:46] LABS: Magnesium 2.1 mg/dL (1.6-2.6)
[2024-01-25] MEDS ORDERED: SODIUM CHL 0.9% 1000 ML BAG XX ONE (07:00)
[2024-01-25] MEDS ORDERED: LOSARTAN POTASSIUM 50 MG TAB PO SCH (10:00)
== END 2024-01-24 21:34 | disposition home or self-care (01) | DRG 280 ==
LOC: ER 13:10 → EDBD 13:10 → TELE 18:51 → TELE-CENTR 01-23 18:55
PROVIDERS: ADMIT Nurse Practitioner; ATTEND Internal Medicine Geriatric Medicine
PROC: 5A1D70Z Performance of Urinary Filtration, Intermittent, Less than 6 Hours Per Day (ICD-10-PCS; principal; 2024-01-24)
DX: I13.2 Hypertensive heart and chronic kidney disease with heart failure and with stage 5 chronic kidney disease, or end stage renal disease (principal); I50.33 Acute on chronic diastolic (congestive) heart failure; I21.A1 Myocardial infarction type 2; N18.6 End stage renal disease; I16.1 Hypertensive emergency; E87.1 Hypo-osmolality and hyponatremia; N25.81 Secondary hyperparathyroidism of renal origin; J81.1 Chronic pulmonary edema; D63.1 Anemia in chronic kidney disease; E78.5 Hyperlipidemia, unspecified; Z99.2 Dependence on renal dialysis; Z86.73 Personal history of transient ischemic attack (TIA), and cerebral infarction without residual deficits; Z88.8 Allergy status to other drugs, medicaments and biological substances; Z79.899 Other long term (current) drug therapy
CPT/HCPCS: 36415; 71045; 80048; 80053; 83735; 83880; 84132; 84484; 85025; 87081; 90935; 93005; 93306; 99291; G0378